=== PATIENT | male | born 1995 | race African-American/Black ===

== ENCOUNTER 2017-06-20 06:40 | Emergency (ER) | payer BC, OTHER ==
[~2017-06-20] VITALS: Ht 188 cm; Wt 109.0 kg
[2017-06-20] MEDS ORDERED: IV NORMAL SALINE 1,000ML 1,000 ML IV ONE (07:00)
[2017-06-20 07:19] LABS: BASO # 0.1 x10^3/uL (0.0-0.2); BASO % 1 % (0-3); EOS # 0.3 x10^3/uL (0.0-0.7); EOS % 2 % (0-3); HEMATOCRIT 48.1 % (39.0-53.0); HEMOGLOBIN 16.1 g/dL (13.0-17.5); LYMPH # 2.4 x10^3/uL (1.0-4.8); LYMPH % 21 % (24-48); MEAN CORPUSCULAR HEMOGLOBIN 29 pg (25-35); MEAN CORPUSCULAR HGB CONC 33 g/dL (31-37); MEAN CORPUSCULAR VOLUME 86 fL (79-100); MONO # 0.7 x10^3/uL (0.0-1.1); MONO % 6 % (0-9); NEUT # 7.9 x10^3uL (1.8-7.7); NEUT % 70 % (31-73); PLATELET COUNT 314 x10^3/uL (140-400); RED BLOOD COUNT 5.57 x10^6/uL (4.30-5.70); RED CELL DISTRIBUTION WIDTH 13.6 % (11.5-14.5); WHITE BLOOD COUNT 11.3 x10^3/uL (4.0-11.0)
--- NOTE | 2017-06-20 08:03 | PHYS DOC ---
Past History Past Medical History: Asthma, Depression, Other Past Surgical History: Other Smoking: Quit Less Than 1 Year Alcohol Use: None Drug Use: Marijuana Adult General Chief Complaint Chief Complaint: NAUSEA/VOMITING/DIARRHEA HPI HPI Patient is a 21 year old M who presents with nausea/vomiting and diarrhea over the past 12 hours. Dhaval states that prior to arrival he had persistent vomiting and is unable to stop. He also has had mild diarrhea. He feels that his symptoms are associated with generalized mild dull abdominal pain. He has no other associated signs and symptoms. He has no known exacerbating or relieving factors. Review of Systems Review of Systems Constitutional: Denies fever or chills [] Eyes: Denies change in visual acuity, redness, or eye pain [] HENT: Denies nasal congestion or sore throat [] Respiratory: Denies cough or shortness of breath [] Cardiovascular: No additional information not addressed in HPI [] GI: Negative except history of present illness : Denies dysuria or hematuria [] Musculoskeletal: Denies back pain or joint pain [] Integument: Denies rash or skin lesions [] Neurologic: Denies headache, focal weakness or sensory changes [] Endocrine: Denies polyuria or polydipsia [] All other systems were reviewed and found to be within normal limits, except as documented in this note. Family History Family History No pertinent family medical history was reported Current Medications Current Medications Current Medications Medications (Trade) Dose Ordered Sig/Loc Start Time Stop Time Status Last Admin Dose Admin Sodium Chloride 1,000 ml @ 1,000 mls/hr 1X ONCE 06/20/17 07:00 06/20/17 07:59 06/20/17 07:07 1,000 MLS/HR Allergies Allergies Allergies Coded Allergies Type Severity Reaction Last Updated Verified red (food color) Allergy 06/07/13 Yes Uncoded Allergies Type Severity Reaction Last Updated Verified SWEETGUM TREES Allergy 06/07/13 Physical Exam Physical Exam Constitutional: Well developed, well nourished, no acute distress, non-toxic appearance. [] HENT: Normocephalic, atraumatic Eyes: EOMI, conjunctiva normal, no discharge. [] Neck: Normal range of motion, no tenderness, supple, no stridor. [] Cardiovascular:Heart rate regular rhythm, Lungs & Thorax: Bilateral breath sounds clear to auscultation [] Abdomen: Bowel sounds normal, soft, no masses, no pulsatile masses. [] Mild generalized abdominal pain Skin: Warm, dry, no erythema, no rash. [] Back: No tenderness, no CVA tenderness. [] Extremities: No tenderness, no cyanosis, no clubbing, ROM intact, no edema. [] Neurologic: Alert and oriented X 3, normal motor function, normal sensory function, no focal deficits noted. [] Psychologic: Affect normal, judgement normal, mood normal. [] Current Patient Data Vital Signs Vital Signs Date Time Temp Pulse Resp B/P (MAP) Pulse Ox O2 Delivery O2 Flow Rate FiO2 06/20/17 06:40 98.2 83 18 99 Room Air Lab Results Laboratory Tests Test 06/20/17 06:50 White Blood Count 11.3 x10^3/uL (4.0-11.0) H Red Blood Count 5.57 x10^6/uL (4.30-5.70) Hemoglobin 16.1 g/dL (13.0-17.5) Hematocrit 48.1 % (39.0-53.0) Mean Corpuscular Volume 86 fL (79-100) Mean Corpuscular Hemoglobin 29 pg (25-35) Mean Corpuscular Hemoglobin Concent 33 g/dL (31-37) Red Cell Distribution Width 13.6 % (11.5-14.5) Platelet Count 314 x10^3/uL (140-400) Neutrophils (%) (Auto) 70 % (31-73) Lymphocytes (%) (Auto) 21 % (24-48) L Monocytes (%) (Auto) 6 % (0-9) Eosinophils (%) (Auto) 2 % (0-3) Basophils (%) (Auto) 1 % (0-3) Neutrophils # (Auto) 7.9 x10^3uL (1.8-7.7) H Lymphocytes # (Auto) 2.4 x10^3/uL (1.0-4.8) Monocytes # (Auto) 0.7 x10^3/uL (0.0-1.1) Eosinophils # (Auto) 0.3 x10^3/uL (0.0-0.7) Basophils # (Auto) 0.1 x10^3/uL (0.0-0.2) Lab report states that blood was grossly hemolyzed. Multiple attempts were made to redraw however Dhaval's symptoms improved significantly with IV fluids and medications. Due to difficulty drawing labs Dhaval declined additional lab draws. EKG EKG [] Radiology/Procedures Radiology/Procedures [] Course & Med Decision Making Course & Med Decision Making Pertinent Labs and Imaging studies reviewed. (See chart for details) [] Dragon Disclaimer Dragon Disclaimer This electronic medical record was generated, in whole or in part, using a voice recognition dictation system. Departure Departure: Impression: Primary Impression: Nausea & vomiting Disposition: 01 HOME, SELF-CARE Condition: STABLE Referrals: SHIRA MARTEL MD (PCP) Patient Instructions: Nausea and Vomiting Additional Instructions: Dhaval was seen in the emergency department for nausea and vomiting. No emergency medical condition was found on history or physical exam. His symptoms did improve with oral nausea medication and IV fluids. He was advised to return the emergency room if he develops new or worsening symptoms. He is also advised follow-up with his primary care doctor as needed for further management. Problem Qualifiers Primary Impression: Nausea & vomiting Vomiting type: unspecified Vomiting Intractability: non-intractable Qualified Codes: R11.2 - Nausea with vomiting, unspecified SHANNAN MOORE MD Jun 20, 2017 08:03
[2017-06-20] MEDS ORDERED: ONDANSETRON ODT 4 MG TAB.RAPDIS ONE (08:05)
[2017-06-20 08:14] VITALS: BP 129/75
[2017-06-20] MEDS ORDERED: ONDANSETRON ODT 4 MG TAB.RAPDIS PO ONE (08:30)
== END 2017-06-20 08:14 | disposition home or self-care (01) ==
LOC: ER 06:40
DX: R11.2 Nausea with vomiting, unspecified (principal); R19.7 Diarrhea, unspecified; R10.84 Generalized abdominal pain; F32.9 Major depressive disorder, single episode, unspecified; J45.909 Unspecified asthma, uncomplicated; F12.10 Cannabis abuse, uncomplicated; Z87.891 Personal history of nicotine dependence; Z91.041 Radiographic dye allergy status
CPT/HCPCS: 36415; 85025; 96360; 99284; Q0162; J7030

== ENCOUNTER 2019-08-16 13:37 | Emergency (ER) | payer BC ==
[~2019-08-16] VITALS: Ht 188 cm; Wt 109.0 kg
[2019-08-16 13:44] VITALS: BP 129/75
[2019-08-16] MEDS ORDERED: IV NORMAL SALINE 1,000ML 1,000 ML IV ONE ×2 (14:00→15:30)
--- NOTE | 2019-08-16 14:02 | PHYS DOC ---
Past History Past Medical History: Asthma, Depression, Other Past Surgical History: Other Smoking: Quit Less Than 1 Year Alcohol Use: None Drug Use: Marijuana General Adult EDM: Chief Complaint: WITHDRAWAL HPI: HPI: Patient is a 23-year-old male who presented to ER today for evaluation of feeling anxious and shaky. Patient said he is an alcoholic, he drinks heavily every day. He decided to stop drinking today. His last drink was last night about 11 PM. Patient denies suicidal ideation, denies homicidal ideation. Patient denies any chest pain, no abdominal pain, no nausea vomiting. Feeling extremely anxious, denies any history of withdrawal seizures. Review of Systems: Review of Systems: Constitutional: Denies fever or chills Eyes: Denies change in visual acuity HENT: Denies nasal congestion or sore throat Respiratory: Denies cough or shortness of breath Cardiovascular: Denies chest pain or edema GI: Denies abdominal pain, nausea, vomiting, bloody stools or diarrhea : Denies dysuria Musculoskeletal: Denies back pain or joint pain Integument: Denies rash Neurologic: Denies headache, focal weakness or sensory changes Endocrine: Denies polyuria or polydipsia Lymphatic: Denies swollen glands Psychiatric: Positive for anxiety, denies homicidal ideation, denies suicidal ideation. Heart Score: Risk Factors: Risk Factors: DM, Current or recent (<one month) smoker, HTN, HLP, family history of CAD, obesity. Risk Scores: Score 0 - 3: 2.5% MACE over next 6 weeks - Discharge Home Score 4 - 6: 20.3% MACE over next 6 weeks - Admit for Clinical Observation Score 7 - 10: 72.7% MACE over next 6 weeks - Early Invasive Strategies Allergies: Allergies: Allergies Coded Allergies Type Severity Reaction Last Updated Verified red (food color) Allergy 06/07/13 Yes Uncoded Allergies Type Severity Reaction Last Updated Verified SWEETGUM TREES Allergy 06/07/13 Physical Exam: PE: Constitutional: Well developed, well nourished, no acute distress, non-toxic appearance. [] HENT: Normocephalic, atraumatic, bilateral external ears normal, oropharynx moist, no oral exudates, nose normal. [] Eyes: PERRLA, EOMI, conjunctiva normal, no discharge. [] Neck: Normal range of motion, no tenderness, supple, no stridor. [] Cardiovascular: Sinus tachycardia, regular rhythm, no murmur [] Lungs & Thorax: Bilateral breath sounds clear to auscultation [] Abdomen: Bowel sounds normal, soft, no tenderness, no masses, no pulsatile masses. [] Skin: Warm, dry, no erythema, no rash. [] Back: No tenderness, no CVA tenderness. [] Extremities: No tenderness, no cyanosis, no clubbing, ROM intact, no edema. [] Neurologic: Alert and oriented X 3, normal motor function, normal sensory function, no focal deficits noted. [] Psychologic: Affect normal, judgement normal, mood normal. Patient appears anxious, denies suicidal ideation. EKG: EKG: [] Radiology/Procedures: Radiology/Procedures: Patient is a 23-year-old male who was seen in the ER due to alcohol withdrawal. Patient was given IV fluids and Ativan. Patient felt much better. Patient will be discharged home, he will be discharged home with a prescription for some Ativan to take. Advised patient to stop drinking alcohol. Patient's mom will come and take him home. Course & Med Decision Making: Course & Med Decision Making Pertinent Labs and Imaging studies reviewed. (See chart for details) [] Dragon Disclaimer: Dragon Disclaimer: This electronic medical record was generated, in whole or in part, using a voice recognition dictation system. Departure Departure: Impression: Primary Impression: Alcohol withdrawal Disposition: 01 HOME/RESIDENCE PRIOR TO ADM Condition: STABLE Referrals: SHIRA MARTEL MD (PCP) please call your family doctor for follow up next week. Patient Instructions: Alcohol Withdrawal Scripts Lorazepam (ATIVAN) 1 Mg Tablet 1 TAB PO TID for anxiety MDD 3 Tablet(s) for 4 Days, #12 TAB 0 Refills Prov: SHANNAN MARX DO 08/16/19 SHANNAN MARX DO August 16, 2019 14:01
[2019-08-16 14:28] LABS: BASO % 0 % (0-3); CREATININE 0.9 mg/dL (0.7-1.3); EOS # 0.2 x10^3/uL (0.0-0.7); EOS % 2 % (0-3); GFR 128.9; HEMATOCRIT 47.7 % (39.0-53.0); HEMOGLOBIN 15.7 g/dL (13.0-17.5); LYMPH # 2.9 x10^3/uL (1.0-4.8); LYMPH % 32 % (24-48); MEAN CORPUSCULAR HEMOGLOBIN 31 pg (25-35); MEAN CORPUSCULAR HGB CONC 33 g/dL (31-37); MEAN CORPUSCULAR VOLUME 93 fL (79-100); MONO # 0.5 x10^3/uL (0.0-1.1); MONO % 5 % (0-9); NEUT # 5.4 x10^3uL (1.8-7.7); NEUT % 60 % (31-73); PLATELET COUNT 271 x10^3/uL (140-400); POTASSIUM 3.2 mmol/L (3.5-5.1); RED BLOOD COUNT 5.14 x10^6/uL (4.30-5.70); WHITE BLOOD COUNT 8.9 x10^3/uL (4.0-11.0)
[2019-08-16 14:32] LABS: ETHANOL 114 mg/dL (0-10); SALIC 3.8 mg/dL (2.8-20.0)
[2019-08-16 14:33] LABS: ACETAMIN < 2.0 mcg/mL (10-30)
[2019-08-16 14:34] LABS: ALBUMIN 4.5 g/dL (3.4-5.0); ALBUMIN/GLOBULIN RATIO 1.3 (1.0-1.7); MAGNESIUM 2.1 mg/dL (1.8-2.4); TOTAL BILIRUBIN 0.3 mg/dL (0.2-1.0); TOTAL PROTEIN 7.9 g/dL (6.4-8.2)
[2019-08-16] MEDS ORDERED: POTASSIUM CHLORIDE 10 MEQ TABLET.ER. PO ONE (14:45)
[2019-08-16] MEDS ORDERED: chlordiazePOXIDE HCL 25 MG CAPSULE PO ONE (15:30)
[2019-08-16] MEDS ORDERED: LORazepam 1 MG TABLET PO ONE (15:30)
[2019-08-16] MEDS ORDERED: LORA-254 PO (16:22)
== END 2019-08-16 16:34 | disposition home or self-care (01) ==
LOC: ER 13:37
DX: F10.239 Alcohol dependence with withdrawal, unspecified (principal); J45.909 Unspecified asthma, uncomplicated; F41.9 Anxiety disorder, unspecified; F32.9 Major depressive disorder, single episode, unspecified; Z87.891 Personal history of nicotine dependence; Z88.8 Allergy status to other drugs, medicaments and biological substances; Y90.5 Blood alcohol level of 100-119 mg/100 ml
CPT/HCPCS: 36415; 80053; 80329; 83735; 85025; 96374; 99283; G0480; J2060; J7030

== ENCOUNTER 2019-09-19 13:03 | Emergency (ER) | payer BC ==
[~2019-09-19] VITALS: Ht 188 cm; Wt 102.0 kg
[~2019-09-19 13:03] MED LIST: LORA-254 PO
[2019-09-19 13:09] VITALS: BP 150/86
[2019-09-19] MEDS ORDERED: DIPH,PERTUSS(ACELL),TET VAC/PF 0.5 ML SYRINGE. VAX IM ONE (13:30)
[2019-09-19] MEDS ORDERED: LIDOCAINE 2%/EPI 1:100,000 20 ML VIAL. IJ ONE (13:30)
[2019-09-19] MEDS ORDERED: NEOMY/BACITR/POLYMYXIN OINT PACKET. TP ONE (13:30)
--- NOTE | 2019-09-19 13:37 | PHYS DOC ---
Past History Past Medical History: Alcoholism, Asthma, Depression, Other Past Surgical History: Other Smoking: Cigarettes, Less than 1pk/day Alcohol Use: Heavy Drug Use: Marijuana General Adult EDM: Chief Complaint: LACERATION/AVULSION HPI: HPI: 23 year old male presents with report of laceration to left middle finger which occurred a few hours prior to arrival. Reports he was working on metal track on garage door and ended up accidentally cutting himself. Reports bleeding is currently controlled. Reports last tetanus booster was > 5 years ago. Reports full ROM of fingers. Denies numbness. Review of Systems: Review of Systems: Constitutional: Denies fever or chills Musculoskeletal: Reports full ROM of tendons Integument: Reports left middle finger laceration Neurologic: Denies headache, focal weakness or sensory changes Complete systems were reviewed and found to be within normal limits, except as documented in this note. Current Medications: Current Meds: Current Medications Medications (Trade) Dose Ordered Sig/Loc Start Time Stop Time Status Last Admin Dose Admin Diphtheria/ Pertussis/Tetanus Vacc (ADACEL TDap SYRINGE) 0.5 ml ONCE ONCE 09/19/19 13:30 09/19/19 13:31 UNV Lidocaine/ Epinephrine (Xylocaine 2%-Epi 1:100,000) 20 ml 1X ONCE 09/19/19 13:30 09/19/19 13:31 UNV Neomycin/ Polymyxin/ Bacitracin (Triple Antibiotic Ointment) 1 pkt 1X ONCE 09/19/19 13:30 09/19/19 13:31 UNV Allergies: Allergies: Allergies Coded Allergies Type Severity Reaction Last Updated Verified red (food color) Allergy 06/07/13 Yes Uncoded Allergies Type Severity Reaction Last Updated Verified SWEETGUM TREES Allergy 06/07/13 Physical Exam: PE: Constitutional: Well developed, well nourished, no acute distress, non-toxic appearance HENT: Normocephalic, atraumatic Eyes: Conjunctiva normal, no discharge Neck: Normal range of motion, supple Cardiovascular: Left radial pulse +2, CR < 2 sec Lungs & Thorax: Equal chest rise and fall, no respiratory distress Skin: Warm, dry, no erythema, 2cm laceration to left middle finger to dorsal proximal phalanx Extremities: Laceration to left middle finger as above, ROM intact, no edema Neurologic: Alert and oriented X 3, no focal deficits noted Psychologic: Affect normal, judgement normal Current Patient Data: Vital Signs: Vital Signs Date Time Temp Pulse Resp B/P (MAP) Pulse Ox O2 Delivery O2 Flow Rate FiO2 09/19/19 13:09 98.0 94 16 150/86 (107) 98 Room Air EKG: EKG: [] Radiology/Procedures: Radiology/Procedures: [] Course & Med Decision Making: Course & Med Decision Making Patient presents with laceration to dorsum of left middle finger to proximal phalanx. Tetanus updated. Wound cleaned, irrigated, repaired with suture, and dressed. A finger splint applied for protection for sutures. Patient stable for discharge home with outpatient follow-up with PCP. Discussed findings and plan with patient, who acknowledges understanding and agreement. Yovany Disclaimer: Yovany Disclaimer: This electronic medical record was generated, in whole or in part, using a voice recognition dictation system. Splinting Splinting : Location: Left middle finger Pre-Made Type: finger splint Pre-Proc Neuro Vasc Exam: normal Post-Proc Neuro Vasc Exam: normal, unchanged from pre-exam Laceration/Wound Repair Laceration/Wound Repair : Wound Location: upper extremity (left middle finger) Wound's Depth, Shape: linear Wound Length (cm): 2 Wound Explored: no foreign body removed Irrigated w/ Saline (ccs): 120 Anesthesia: Lidocaine w/ Epi (2%) Volume Anesthetic (ccs): 3 Wound Repaired With: sutures Suture Size/Type: 4:0, nylon Number of Sutures: 3 Sterile Dressing Applied?: Yes Splint Applied?: Yes Type of Splint Applied: finger splint Progress Verbal consent obtained. Time out performed. Hand hygiene utilized. Wound cleaned with ChloraPrep. Anesthesia obtained with use of 2% Lidocaine with epi x 3mls via local infiltration with 30g hypodermic needle. Wound repaired with 4-0 Nylon x 3 simple interrupted sutures. Wound dressed with sterile dressing and triple antibiotic ointment. Finger splint applied to protect wound. Patient tolerated procedure well and without difficulty. Departure Departure: Impression: Primary Impression: Laceration Additional Impression: Need for tetanus booster Disposition: 01 HOME/RESIDENCE PRIOR TO ADM Condition: STABLE Referrals: SHIRA MARTEL MD (PCP) Patient Instructions: Laceration Care, Adult, [id number], VIS, Tetanus, Diphtheria (Td); Tetanus, Diphtheria, Pertussis (Tdap) - CDC Additional Instructions: Do not soak your wound. You may shower. Clean wound daily with soap and water. Change dressing 2 times daily. Use over the counter antibiotic ointment with each dressing change. Use splint to prevent sutures from breaking due to bending your finger. Sutures need to be removed in 7-10 days. Present to your family doctor or local urgent care for removal. You may also present to the ED but it will be an additional visit/charge. After suture removal you may use Vitamin E ointment to soften the wound and prevent scarring. Justification of Admission: Justification of Admission: Justification of Admission Dx: N/A JOE HENDERSON DO Sep 19, 2019 13:37
== END 2019-09-19 14:10 | disposition home or self-care (01) ==
LOC: ER 13:03
DX: S61.213A Laceration without foreign body of left middle finger without damage to nail, initial encounter (principal); J45.909 Unspecified asthma, uncomplicated; F17.210 Nicotine dependence, cigarettes, uncomplicated; F10.20 Alcohol dependence, uncomplicated; Z91.018 Allergy to other foods; Y90.9 Presence of alcohol in blood, level not specified; W26.8XXA Contact with other sharp object(s), not elsewhere classified, initial encounter; Y93.89 Activity, other specified; Y92.59 Other trade areas as the place of occurrence of the external cause; Y99.8 Other external cause status
CPT/HCPCS: 12001; 90471; 90715; 99283

== ENCOUNTER 2020-02-13 10:40 | Emergency (ER) | payer BC ==
[~2020-02-13] VITALS: Ht 188 cm; Wt 110.0 kg
[2020-02-13 10:55] VITALS: BP 147/87
--- NOTE | 2020-02-13 11:09 | PHYS DOC ---
Past History Past Medical History: Alcoholism, Asthma, Depression, Other Past Surgical History: Other Smoking: Cigarettes, Less than 1pk/day Alcohol Use: Heavy Drug Use: Marijuana Adult General Chief Complaint Chief Complaint: ABDOMINAL PAIN HPI HPI Patient is a 24yo male presenting with RLQ pain. Onset was this morning when waking up without any known inciting event and/or trauma. Nothing known makes better. Direct palpation and PO intake. Pain is focal, sharp, and 8/10 severity. Timing of symptoms has been constant since onset. Denies any fever, COVID-19 con tact or prior abdominal surgeries. No remarkable past medical history, does not take any daily medications Review of Systems Review of Systems Fourteen body systems of review of systems have been reviewed. See HPI for perti nent positives and negative responses, other arceo all other systems are negative, non-pertinent or non-contributory Allergies Allergies Allergies Coded Allergies Type Severity Reaction Last Updated Verified red (food color) Allergy Unknown 02/13/20 Yes Uncoded Allergies Type Severity Reaction Last Updated Verified SWEETGUM TREES Allergy Unknown 02/13/20 Physical Exam Physical Exam Constitutional: Well developed, well nourished, mod distress due to pain, non- toxic appearance. HENT: Normocephalic, atraumatic, bilateral external ears normal, oropharynx moist, no oral exudates, nose normal. Eyes: PERRLA, EOMI, conjunctiva normal, no discharge. Neck: Normal range of motion, no tenderness, supple, no stridor. Cardiovascular: Heart rate regular, sinus rhythm, no murmurs rubs or gallops Lungs & Thorax: Bilateral breath sounds clear to auscultation Abdomen: Bowel sounds normal, soft, RLQ tenderness, pain at McBurney's point, negative wilson sign, guarding present, no rebound, no masses, no pulsatile masses. Skin: Warm, dry, no erythema, no rash. Back: No tenderness, no CVA tenderness. Extremities: No tenderness, no cyanosis, no clubbing, ROM intact, no edema. Neurologic: Alert and oriented X 3, grossly normal motor & sensory function, no focal deficits noted. Psychologic: Affect normal, judgement normal, mood normal. Current Patient Data Vital Signs Vital Signs Date Time Temp Pulse Resp B/P (MAP) Pulse Ox O2 Delivery O2 Flow Rate FiO2 02/13/20 12:45 16 99 Room Air 02/13/20 10:55 98.1 83 147/87 (107) Lab Results Laboratory Tests Test 02/13/20 12:08 White Blood Count 12.9 x10^3/uL (4.0-11.0) Red Blood Count 4.86 x10^6/uL (4.30-5.70) Hemoglobin 14.3 g/dL (13.0-17.5) Hematocrit 44.0 % (39.0-53.0) Mean Corpuscular Volume 91 fL (79-100) Mean Corpuscular Hemoglobin 29 pg (25-35) Mean Corpuscular Hemoglobin Concent 33 g/dL (31-37) Red Cell Distribution Width 14.8 % (11.5-14.5) Platelet Count 266 x10^3/uL (140-400) Neutrophils (%) (Auto) 73 % (31-73) Lymphocytes (%) (Auto) 15 % (24-48) Monocytes (%) (Auto) 9 % (0-9) Eosinophils (%) (Auto) 3 % (0-3) Basophils (%) (Auto) 1 % (0-3) Neutrophils # (Auto) 9.4 x10^3uL (1.8-7.7) Lymphocytes # (Auto) 1.9 x10^3/uL (1.0-4.8) Monocytes # (Auto) 1.1 x10^3/uL (0.0-1.1) Eosinophils # (Auto) 0.4 x10^3/uL (0.0-0.7) Basophils # (Auto) 0.1 x10^3/uL (0.0-0.2) Sodium Level 137 mmol/L (136-145) Potassium Level 4.2 mmol/L (3.5-5.1) Chloride Level 102 mmol/L (98-107) Carbon Dioxide Level 27 mmol/L (21-32) Anion Gap 8 (6-14) Blood Urea Nitrogen 14 mg/dL (8-26) Creatinine 1.0 mg/dL (0.7-1.3) Estimated GFR (Cockcroft-Gault) 113.1 BUN/Creatinine Ratio 14 (6-20) Glucose Level 99 mg/dL (70-99) Calcium Level 9.6 mg/dL (8.5-10.1) Total Bilirubin 0.4 mg/dL (0.2-1.0) Aspartate Amino Transf (AST/SGOT) 25 U/L (15-37) Alanine Aminotransferase (ALT/SGPT) 63 U/L (16-63) Alkaline Phosphatase 67 U/L (46-116) C-Reactive Protein 5.6 mg/L (0-3.3) Total Protein 7.5 g/dL (6.4-8.2) Albumin 4.0 g/dL (3.4-5.0) Albumin/Globulin Ratio 1.1 (1.0-1.7) EKG EKG [] Radiology/Procedures Radiology/Procedures PROCEDURE: CT ABD PELV W/ IV CONTRST ONLY CT of the abdomen and pelvis with IV contrast 02/13/2020 INDICATION: Right lower quadrant pain. Concern for acute appendicitis. COMPARISON STUDY: Ultrasound of the right lower quadrant earlier same day TECHNIQUE: Multidetector CT imaging of the abdomen and pelvis was performed following the administration of IV contrast. FINDINGS: Exam is positive for acute appendicitis. The appendix is dilated with thickened wall and mild periappendiceal stranding. The appendix measures up to 1.2 cm in thickness. Minimal surrounding mesenteric adenopathy is seen. No free fluid or free air is seen in the abdomen or pelvis. Visualized lung bases are clear. Liver, gallbladder, spleen, bilateral adrenal glands, pancreas, and bilateral kidneys are grossly unremarkable. There is no bowel obstruction.The bladder is grossly unremarkable. No evidence of acute osseous abnormality is identified. IMPRESSION: Acute appendicitis CT DOSING PQRS STATEMENT: One or more of the following individualized dose reduction techniques were utilized for this examination: 1. Automated exposure control 2. Adjustment of the mA and/or kV according to patient size 3. Use of iterative reconstruction technique Electronically signed by: Collin Pelayo MD (02/13/2020 12:27 PM) [id number] Heart Score Risk Factors: Risk Factors: DM, Current or recent (<one month) smoker, HTN, HLP, family history of CAD, obesity. Risk Scores: Risk Factors: DM, Current or recent (<one month) smoker, HTN, HLP, family history of CAD, obesity. Course & Med Decision Making Course & Med Decision Making Pertinent Labs and Imaging studies reviewed. (See chart for details) Dr. Jackson, general surgery at [facility] contacted and he agreed for transfer Dr. Haro, hospitalist at [facility] contacted and he agreed to admission under his care Patient updated on plan of care and amenable. All questions and concerns addressed prior to ED departure Yovany Disclaimer Yovany Disclaimer This electronic medical record was generated, in whole or in part, using a voice recognition dictation system. Departure Departure: Impression: Primary Impression: Acute appendicitis Disposition: 02 DC/TRF OTHER SHORT TERM HOS ([facility]) Admitting Physician: Other (Dr. Haro) Condition: STABLE Referrals: SHIRA MARTEL MD (PCP) CARMEN MCGREGOR DO Feb 13, 2020 11:09
--- NOTE | 2020-02-13 11:37 | RAD ---
RIGHT LOWER QUANDRANT History:Reason: RLQ PAIN / Spl. Instructions: / History: Comparison: None Technique: Sonographic examination of the right lower quadrant Findings: Appendix not identified. Peristalsing bowel noted within the region the patient's palpable concern. No mass or fluid collection. Impression: 1. Appendix not identified. Electronically signed by: Dwain Merrill DO (02/13/2020 11:34 AM) [id number]
[2020-02-13] MEDS ORDERED: IOHEXOL 300 MG/ML 75 ML VIAL. IV ONE (12:15)
[2020-02-13 12:20] LABS: BASO # 0.1 x10^3/uL (0.0-0.2); BASO % 1 % (0-3); EOS # 0.4 x10^3/uL (0.0-0.7); EOS % 3 % (0-3); HEMOGLOBIN 14.3 g/dL (13.0-17.5); LYMPH # 1.9 x10^3/uL (1.0-4.8); LYMPH % 15 % (24-48); MEAN CORPUSCULAR HEMOGLOBIN 29 pg (25-35); MEAN CORPUSCULAR HGB CONC 33 g/dL (31-37); MEAN CORPUSCULAR VOLUME 91 fL (79-100); MONO # 1.1 x10^3/uL (0.0-1.1); MONO % 9 % (0-9); NEUT # 9.4 x10^3uL (1.8-7.7); NEUT % 73 % (31-73); PLATELET COUNT 266 x10^3/uL (140-400); RED BLOOD COUNT 4.86 x10^6/uL (4.30-5.70); RED CELL DISTRIBUTION WIDTH 14.8 % (11.5-14.5); WHITE BLOOD COUNT 12.9 x10^3/uL (4.0-11.0)
--- NOTE | 2020-02-13 12:30 | RAD ---
CT of the abdomen and pelvis with IV contrast 02/13/2020 INDICATION: Right lower quadrant pain. Concern for acute appendicitis. COMPARISON STUDY: Ultrasound of the right lower quadrant earlier same day TECHNIQUE: Multidetector CT imaging of the abdomen and pelvis was performed following the administration of IV contrast. FINDINGS: Exam is positive for acute appendicitis. The appendix is dilated with thickened wall and mild periappendiceal stranding. The appendix measures up to 1.2 cm in thickness. Minimal surrounding mesenteric adenopathy is seen. No free fluid or free air is seen in the abdomen or pelvis. Visualized lung bases are clear. Liver, gallbladder, spleen, bilateral adrenal glands, pancreas, and bilateral kidneys are grossly unremarkable. There is no bowel obstruction.The bladder is grossly unremarkable. No evidence of acute osseous abnormality is identified. IMPRESSION: Acute appendicitis CT DOSING PQRS STATEMENT: One or more of the following individualized dose reduction techniques were utilized for this examination: 1. Automated exposure control 2. Adjustment of the mA and/or kV according to patient size 3. Use of iterative reconstruction technique Electronically signed by: Collin Pelayo MD (02/13/2020 12:27 PM) [id number]
[2020-02-13 12:32] LABS: CALCIUM 9.6 mg/dL (8.5-10.1); GFR 113.1; POTASSIUM 4.2 mmol/L (3.5-5.1)
[2020-02-13 12:37] LABS: ALBUMIN/GLOBULIN RATIO 1.1 (1.0-1.7); C REACTIVE PROTEIN 5.6 mg/L (0-3.3); TOTAL BILIRUBIN 0.4 mg/dL (0.2-1.0); TOTAL PROTEIN 7.5 g/dL (6.4-8.2)
[2020-02-13] MEDS ORDERED: MORPHINE SULFATE 4 MG/ML DISP.SYRIN. IV ONE (12:45)
== END 2020-02-13 15:47 | disposition short-term general hospital (02) ==
LOC: ER 10:40
DX: K35.80 Unspecified acute appendicitis (principal); R10.31 Right lower quadrant pain; F10.10 Alcohol abuse, uncomplicated; F12.90 Cannabis use, unspecified, uncomplicated; F17.210 Nicotine dependence, cigarettes, uncomplicated; Z98.890 Other specified postprocedural states; Z91.018 Allergy to other foods
CPT/HCPCS: 36415; 74177; 80053; 85025; 86140; 93975; 96374; 99285; J2270; Q9967

== ENCOUNTER 2020-07-19 08:36 | Emergency (ER) | payer BC ==
[~2020-07-19] VITALS: Ht 188 cm; Wt 127.0 kg
[2020-07-19 08:41] VITALS: BP 166/97
--- NOTE | 2020-07-19 09:08 | PHYS DOC ---
Past History Past Medical History: Asthma, Depression Additional Past Medical Histor: heavy alcohol abuse Past Surgical History: No Surgical History Smoking: Cigarettes, Less than 1pk/day Alcohol Use: Heavy Drug Use: Marijuana General Adult EDM: Chief Complaint: TESTICULAR PAIN OR INJURY HPI: HPI: 24-year-old male presents with right testicular pain. The patient has been having an intermittent cramping sensation up to 8 out of 10 for the last day and a half. The episodes come and go. They last for around 10 or 15 minutes. He denies any trauma or falls. Denies lifting heavy objects recently. Does not complain of any urinary difficulty. Denies fever or chills. Review of Systems: Review of Systems: Constitutional: Denies fever or chills Eyes: Denies change in visual acuity HENT: Denies nasal congestion or sore throat Respiratory: Denies cough or shortness of breath Cardiovascular: Denies chest pain or edema GI: Denies abdominal pain, nausea, vomiting, bloody stools or diarrhea : Right testicular pain Musculoskeletal: Denies back pain or joint pain Integument: Denies rash Neurologic: Denies headache, focal weakness or sensory changes Endocrine: Denies polyuria or polydipsia Lymphatic: Denies swollen glands Psychiatric: Denies depression or anxiety Allergies: Allergies: Allergies Coded Allergies Type Severity Reaction Last Updated Verified red (food color) Allergy Intermediate 02/13/20 Yes Uncoded Allergies Type Severity Reaction Last Updated Verified SWEETGUM TREES Allergy Unknown 02/13/20 Physical Exam: PE: Constitutional: Well developed, well nourished, no acute distress, non-toxic appearance. [] HENT: Normocephalic, atraumatic, bilateral external ears normal, oropharynx moist, no oral exudates, nose normal. [] Eyes: PERRLA, EOMI, conjunctiva normal, no discharge. [] Neck: Normal range of motion, no tenderness, supple, no stridor. [] Cardiovascular:Heart rate regular rhythm, no murmur [] Lungs & Thorax: Bilateral breath sounds clear to auscultation [] Abdomen: Bowel sounds normal, soft, no tenderness, no masses, no pulsatile masses. [] Skin: Warm, dry, no erythema, no rash. [] Back: No tenderness, no CVA tenderness. [] Extremities: No tenderness, no cyanosis, no clubbing, ROM intact, no edema. [] Neurologic: Alert and oriented X 3, normal motor function, normal sensory function, no focal deficits noted. [] Psychologic: Affect normal, judgement normal, mood normal. : Bilateral descended testicles, grossly similar in size, no obvious swelling. No significant tenderness with palpation. [] Current Patient Data: Vital Signs: Vital Signs Date Time Temp Pulse Resp B/P (MAP) Pulse Ox O2 Delivery O2 Flow Rate FiO2 07/19/20 08:41 98.2 80 16 166/97 (120) 97 Room Air EKG: EKG: [] Radiology/Procedures: Radiology/Procedures: [] Impressions: US TESTICULAR History: Reason: right testicle pain / Spl. Instructions: / History: Comparison: None. Technique: Multiple grayscale, color flow Doppler and Doppler spectral analysis images of the scrotum are obtained. Findings: Right testicle measures 4.6 x 4.3 x 2.2 cm. Right testicle demonstrates normal parenchymal echogenicity. Right epididymal head cyst measures 0.4 x 0.4 x 0.3 cm. Left testicle measures 4.6 x 3.7 x 2.3 cm. Left testicle demonstrates normal parenchymal echogenicity. Left epididymis is unremarkable. Small bilateral hydroceles. No varicocele. No scrotal hyperemia or swelling. Doppler imaging demonstrates normal flow to both testicles, without evidence of torsion. IMPRESSION: 1. Small bilateral hydroceles. 2. Small right epididymal head cyst. Electronically signed by: Misty Rosenberg DO (07/19/2020 10:39 AM) [facility] DICTATED AND SIGNED BY: MISTY ROSENBERG DO DATE: 07/19/20 1036 CC: MYRIAM NOEL DO; SHIRA MARTEL MD ~MTH0 0 Heart Score: C/O Chest Pain: N/A Risk Factors: Risk Factors: DM, Current or recent (<one month) smoker, HTN, HLP, family history of CAD, obesity. Risk Scores: Score 0 - 3: 2.5% MACE over next 6 weeks - Discharge Home Score 4 - 6: 20.3% MACE over next 6 weeks - Admit for Clinical Observation Score 7 - 10: 72.7% MACE over next 6 weeks - Early Invasive Strategies Course & Med Decision Making: Course & Med Decision Making Pertinent Labs and Imaging studies reviewed. (See chart for details) The patient does not have torsion. He appears to have a small epididymal head cyst. This may be causing his discomfort. He does not appear to have epididymitis or other infection. I have advised supportive care and [id number] pain medication such as ibuprofen at this time. I advised him that if the cyst grows larger it may become uncomfortable and he may need to seek further care at that time. He states verbal understanding. He is stable for discharge at this time. [] Dragon Disclaimer: Dragon Disclaimer: This electronic medical record was generated, in whole or in part, using a voice recognition dictation system. Departure Departure: Impression: Primary Impression: Cyst of epididymis Disposition: HOME / SELF CARE / HOMELESS Condition: STABLE Referrals: SHIRA MARTEL MD (PCP) Patient Instructions: Testicular Masses MYRIAM NOEL DO Jul 19, 2020 09:07
--- NOTE | 2020-07-19 10:41 | RAD ---
US TESTICULAR History: Reason: right testicle pain / Spl. Instructions: / History: Comparison: None. Technique: Multiple grayscale, color flow Doppler and Doppler spectral analysis images of the scrotum are obtained. Findings: Right testicle measures 4.6 x 4.3 x 2.2 cm. Right testicle demonstrates normal parenchymal echogenic ity. Right epididymal head cyst measures 0.4 x 0.4 x 0.3 cm. Left testicle measures 4.6 x 3.7 x 2.3 cm. Left testicle demonstrates normal parenchymal echogenici ty. Left epididymis is unremarkable. Small bilateral hydroceles. No varicocele. No scrotal hyperemia or swelling. Doppler imaging demonstrates normal flow to both testicles, without evidence of torsion. IMPRESSION: 1. Small bilateral hydroceles. 2. Small right epididymal head cyst. Electronically signed by: Dwain Merrill DO (07/19/2020 10:39 AM) [facility]
== END 2020-07-19 11:19 | disposition home or self-care (01) ==
LOC: ER 08:36
DX: N50.3 Cyst of epididymis (principal); J45.909 Unspecified asthma, uncomplicated; F17.210 Nicotine dependence, cigarettes, uncomplicated; F10.20 Alcohol dependence, uncomplicated; Y90.9 Presence of alcohol in blood, level not specified; Z91.018 Allergy to other foods
CPT/HCPCS: 76870; 99284-25

== ENCOUNTER → 2021-02-01 | Outpatient (CLI) | payer BC ==
--- NOTE | 2021-02-01 15:08 | RAD ---
XR LT WRIST 2 VIEWS DATE: 02/01/2021 12:04 PM INDICATION: Reason: LEFT WRIST PAIN / Spl. Instructions: / History: COMPARISON: None. FINDINGS: Bones: There is no evidence of acute fracture or dislocation. Joints: The joint spaces are normal. Miscellaneous: None. IMPRESSION: No acute osseous abnormality. Electronically signed by: Lee Weeks MD (02/01/2021 3:05 PM) [facility]
== END ==
LOC: RAD 11:56
PROVIDERS: ATTEND Family Medicine
DX: M25.532 Pain in left wrist (principal)
CPT/HCPCS: 73100